=== PATIENT | male | born 1965 | race Caucasian/White ===

== ENCOUNTER 2018-12-24 10:59 | Emergency (ER) | payer OTHER ==
--- NOTE | 2018-12-24 11:42 | ERPHSYRPT ---
- History of Present Illness Time Seen by Provider: 12/24/18 11:22 Source: patient Exam Limitations: no limitations Patient Subjective Stated Complaint: medial low back pain Triage Nursing Assessment: Pt c/o of low medial back pain, has had for a couple of years but thinks he stepped on something wrong yesterday that is aggravating his back, vitals wnl, pulses normal, afebrile, denies numbness or tingling in fingers or toes, no difficulties with strength, rates pain 06/23 Physician History: The patient is a morbidly obese 53-year-old male with his mother. He has chronic low back pain. This morning at 5 AM he stepped out of his bed "wrong" causing a flareup of his low back pain. He has intermittent flareups from time to time. He has had recent MRIs showing spinal stenosis and degenerative disc disease. He states he will get a pain specialist. A neurosurgeon will do surgery for him after he lose more weight. He is been trying to get someone to give him a pain pump. He is allergic to treatments such as Toradol and benzodiazepine. He does not want steroids because it will "mess with his blood sugar". He specifically requests Dilaudid 2 mg followed by Dilaudid 2 mg 30-40 minutes later. I have told him I will give him maximum of 2 mg of Dilaudid. His past medical history is significant for morbid obesity,chronic low back pain , HTN, DM, and high cholesterol 1 Timing/Duration: today Method of Injury: twisted Quality: aching Back Pain Location: lumbar spine Severity of Pain-Max: moderate Severity of Pain-Current: moderate Modifying Factors: Improves With: nothing Associated Symptoms: denies symptoms, No urinary incontinence, No problems urinating, No numbness in legs/feet Previous symptoms: same symptoms as today Allergies/Adverse Reactions: butorphanol [From Stadol] Allergy (Mild, Verified 12/24/18 11:18) Hives ketorolac [From Toradol] Allergy (Mild, Verified 12/24/18 11:18) Hives morphine Allergy (Mild, Verified 12/24/18 11:18) Hives nalbuphine [From Nubain] Allergy (Mild, Verified 12/24/18 11:18) Hives orphenadrine [From Norflex] Allergy (Mild, Verified 12/24/18 11:18) Hives Home Medications: Atorvastatin Calcium [Lipitor 40Mg] 40 mg PO HS 09/15/16 [History] Citalopram Hydrobromide 20 mg* [ceLEXa 20 MG] 20 mg PO DAILY 09/15/16 [ History] Cyclobenzaprine HCl 10 mg [Flexeril 10 MG] 10 mg PO UD 09/15/16 [History] Lisinopril 20 mg [Zestril 20 MG] 20 mg PO DAILY 09/15/16 [History] Metformin HCl 1000 mg [Glucophage 1000 MG] 1,000 mg PO BID 09/15/16 [History] Ranitidine HCl [Zantac] 150 mg PO DAILY 09/15/16 [History] Albuterol Common Canister [Proventil Common Canister] 1 inh PO UD PRN 09/01 [History] Allopurinol 300 mg [Zyloprim 300 mg] 300 mg PO DAILY 12/24/18 [History] Buspirone HCl 5 mg PO DAILY 12/24/18 [History] Omeprazole 20 mg PO DAILY 12/24/18 [History] glipiZIDE [Glipizide] 10 mg PO DAILY 12/24/18 [History] Hx Tetanus, Diphtheria Vaccination/Date Given: Yes Hx Influenza Vaccination/Date Given: No Hx Pneumococcal Vaccination/Date Given: No - Review of Systems Constitutional: No Fever, No Chills Eyes: No Symptoms Ears, Nose, & Throat: No Symptoms Respiratory: No Cough, No Dyspnea Cardiac: No Chest Pain, No Edema, No Syncope Abdominal/Gastrointestinal: No Abdominal Pain, No Nausea, No Vomiting, No Diarrhea Genitourinary Symptoms: No Dysuria Musculoskeletal: Back Pain Skin: No Rash Neurological: No Dizziness, No Focal Weakness, No Sensory Changes Psychological: No Symptoms Endocrine: No Symptoms Hematologic/Lymphatic: No Symptoms Immunological/Allergic: No Symptoms All Other Systems: Reviewed and Negative - Past Medical History Pertinent Past Medical History: Yes Neurological History: No Pertinent History ENT History: No Pertinent History Cardiac History: Hypertension Respiratory History: No Pertinent History Endocrine Medical History: Diabetes Type II Musculoskeletal History: Degenerative Disk Disease GI Medical History: GERD, Irritable Bowel History: No Pertinent History Psycho-Social History: Depression Male Reproductive Disorders: No Pertinent History - Past Surgical History Past Surgical History: Yes Gastrointestinal: Cholecystectomy Musculoskeletal: Orthopedic Surgery Other Surgical History: Knees-orthoscopic. right ankle. left arm - Social History Smoking Status: Never smoker Exposure to second hand smoke: No Drug Use: none Patient Lives Alone: No - Nursing Vital Signs Nursing Vital Signs: Initial Vital Signs Temperature 98.7 F 12/24/18 11:07 Pulse Rate 79 12/24/18 11:07 Blood Pressure 141/77 12/24/18 11:07 O2 Sat by Pulse Oximetry 97 12/24/18 11:07 Pain Scale Pain Intensity [Posterior 8 Medial Back] Pain Intensity 8 - Physical Exam General Appearance: obese Eye Exam: PERRL/EOMI, eyes nml inspection Ears, Nose, Throat Exam: normal ENT inspection Neck Exam: normal inspection, non-tender, supple, full range of motion, No meningismus, No midline tenderness Respiratory Exam: normal breath sounds, lungs clear, No respiratory distress Cardiovascular Exam: regular rate/rhythm, normal heart sounds Gastrointestinal Exam: soft, No tenderness, No mass Rectal Exam: not done Back Exam: point tenderness (lumbar vertebrae) Extremity Exam: normal inspection, normal range of motion, No calf tenderness, No pedal edema Neurologic Exam: alert, oriented x 3, cooperative, game technician II-XII nml as tested, normal mood/affect, nml station & gait, sensation nml, No motor deficits Skin Exam: normal color, warm, dry, No rash SpO2 Interpretation: normal SpO2: 97 O2 Delivery: Room Air - Departure Time of Disposition: 11:51 Departure Disposition: Home Clinical Impression: Chronic low back pain Condition: Stable Critical Care Time: No Referrals: DOCTOR,NO FAMILY [Primary Care Provider] - Additional Instructions: You have a flareup of your chronic low back pain. You were given Dilaudid 2 mg by IM in the ER. Apply ice to the area for 10 to 2:45 times a day as needed. I recommend that you find a pain specialist to manage your chronic back pain.
[2018-12-24] MEDS ORDERED: Hydromorphone 1 mg/ml Ampule IM ONE (11:52)
[2018-12-24] MEDS ORDERED: Hydromorphone 1 mg/ml Ampule ONE (11:59)
[2018-12-24 12:07] VITALS: BP 167/100; PULSE 81; O2SAT 98
[2018-12-24] MEDS ORDERED: ZOFRAN ODT 4 MG PO ONE (12:10)
[2018-12-24] MEDS ORDERED: ZOFRAN ODT 4 MG ONE (12:22)
== END 2018-12-24 12:27 | disposition home or self-care (01) ==
LOC: ED 10:59
DX: M54.5 Low back pain (principal); X50.1XXA Overexertion from prolonged static or awkward postures, initial encounter; G89.29 Other chronic pain; I10 Essential (primary) hypertension; E11.9 Type 2 diabetes mellitus without complications; K21.9 Gastro-esophageal reflux disease without esophagitis; K58.9 Irritable bowel syndrome, unspecified; Z79.4 Long term (current) use of insulin; Z79.899 Other long term (current) drug therapy; E66.01 Morbid (severe) obesity due to excess calories; E78.00 Pure hypercholesterolemia, unspecified
CPT/HCPCS: 96372; 99283; J1170; Q0162

== ENCOUNTER 2022-09-17 09:40 | Emergency (ER) | payer SELFPAY ==
[2022-09-17] MEDS ORDERED: Hydromorphone 1 mg/ml Injection IM ONE (10:15)
[2022-09-17] MEDS ORDERED: ZOFRAN ODT 4 MG PO ONE (10:15)
--- NOTE | 2022-09-17 10:15 | ERPHSYRPT ---
- History of Present Illness Time Seen by Provider: 09/17/22 10:15 Source: patient, family Exam Limitations: no limitations Physician History: This is a morbidly obese 57-year-old white male patient who has a history of chronic back pain issues and does not see a pain specialist who lives in [place] and is traveling through this region. The patient has hyperlipidemia, hypertension and is diabetic. His primary care physician is in [place]. In the last few days, the patient has had increasing localized lumbar spine pain. He does not have any change in his bowel habits. He does not have numbness in his feet. He does not have urinary incontinence. He is only seeking some temporary pain relief so that he can get back to [place] which is where he is going to now. He states he is allergic to morphine and Toradol and Nubain but he is able to take Dilaudid without any problems. He did not fall or have any acute traumatic injury. Patient feels that he does not need any radiographic or laboratory studies. Timing/Duration: day(s) (A few days), worse Quality: sharp Back Pain Location: lumbar spine, paraspinous muscles Severity of Pain-Max: moderate Severity of Pain-Current: moderate Modifying Factors: Improves With: movement Associated Symptoms: lower back pain, No urinary incontinence, No loss of bowel control, No problems urinating, No numbness in legs/feet Previous symptoms: same symptoms as today, recently seen, recently treated Allergies/Adverse Reactions: butorphanol [From Stadol] Allergy (Mild, Verified 12/24/18 11:18) Hives ketorolac [From Toradol] Allergy (Mild, Verified 12/24/18 11:18) Hives morphine Allergy (Mild, Verified 12/24/18 11:18) Hives nalbuphine [From Nubain] Allergy (Mild, Verified 12/24/18 11:18) Hives orphenadrine [From Norflex] Allergy (Mild, Verified 12/24/18 11:18) Hives Home Medications: Atorvastatin Calcium [Lipitor 40Mg] 80 mg PO HS 09/15/16 [History] Citalopram Hydrobromide 20 mg* [ceLEXa 20 MG] 20 mg PO DAILY 09/15/16 [History] Cyclobenzaprine HCl 10 mg [Flexeril 10 MG] 10 mg PO UD 09/15/16 [History] Lisinopril 20 mg [Zestril 20 MG] 20 mg PO DAILY 09/15/16 [History] Metformin HCl 1000 mg [Glucophage 1000 MG] 1,000 mg PO BID 09/15/16 [History] raNITIdine HCL [Zantac] 150 mg PO DAILY 09/15/16 [History] Albuterol Common Canister [Ventolin Common Canister] 1 inh PO UD PRN 12/24/18 [History] Allopurinol 300 mg [Zyloprim 300 mg] 300 mg PO DAILY 12/24/18 [History] Buspirone HCl 5 mg PO DAILY 12/24/18 [History] Omeprazole 20 mg PO DAILY 12/24/18 [History] glipiZIDE [Glipizide] 10 mg PO DAILY 12/24/18 [History] Hx Tetanus, Diphtheria Vaccination/Date Given: Yes Hx Influenza Vaccination/Date Given: No Hx Pneumococcal Vaccination/Date Given: No Travel Risk - International Travel Have you traveled outside of the country in past 3 weeks: No - Coronavirus Screening Are you exhibiting any of the following symptoms?: No Close contact with a COVID-19 positive Pt in past 14-21 Days: No - Review of Systems Constitutional: No Symptoms Eyes: No Symptoms Ears, Nose, & Throat: No Symptoms Respiratory: No Symptoms Cardiac: No Symptoms Abdominal/Gastrointestinal: No Symptoms Genitourinary Symptoms: No Symptoms Musculoskeletal: No Symptoms, Back Pain Skin: No Symptoms Neurological: No Symptoms Psychological: No Symptoms Endocrine: No Symptoms Hematologic/Lymphatic: No Symptoms Immunological/Allergic: No Symptoms All Other Systems: Reviewed and Negative - Past Medical History Pertinent Past Medical History: Yes Neurological History: No Pertinent History ENT History: No Pertinent History Cardiac History: Hypertension Respiratory History: No Pertinent History Endocrine Medical History: Diabetes Type II Musculoskeletal History: Degenerative Disk Disease GI Medical History: GERD, Irritable Bowel History: No Pertinent History Psycho-Social History: Depression Male Reproductive Disorders: No Pertinent History - Past Surgical History Past Surgical History: Yes Gastrointestinal: Cholecystectomy Musculoskeletal: Orthopedic Surgery Other Surgical History: Knees-orthoscopic. right ankle. left arm - Social History Smoking Status: Never smoker Exposure to second hand smoke: No Drug Use: none Patient Lives Alone: No - Physical Exam General Appearance: no apparent distress, alert, anxiety, obese Eye Exam: PERRL/EOMI, eyes nml inspection Ears, Nose, Throat Exam: normal ENT inspection, moist mucous membranes Neck Exam: normal inspection, non-tender, supple, full range of motion Respiratory Exam: normal breath sounds, lungs clear, airway intact, No chest tenderness, No respiratory distress Cardiovascular Exam: regular rate/rhythm, normal heart sounds, normal peripheral pulses Gastrointestinal Exam: soft, normal bowel sounds, No tenderness Rectal Exam: not done Back Exam: normal inspection, vertebral tenderness (Lumbar level), muscle spasm, No CVA tenderness Extremity Exam: normal inspection, normal range of motion, pelvis stable Neurologic Exam: alert, oriented x 3, cooperative, ticker maintainer II-XII nml as tested, normal mood/affect, nml cerebellar function, nml station & gait, sensation nml Skin Exam: normal color, warm, dry Lymphatic Exam: No adenopathy SpO2 Interpretation: normal O2 Delivery: Room Air - Course Nursing assessment & vital signs reviewed: Yes Ordered Tests: Medication Summary Discontinued Medications Generic Name Dose Route Start Last Admin Trade Name Walter PRN Reason Stop Dose Admin Hydromorphone HCl 2 mg 09/17/22 10:15 Hydromorphone 1 Mg/1ml Inj 1 Mg/Ml Syringe IM 09/17/22 10:16 STAT ONE Ondansetron HCl 4 mg 09/17/22 10:15 Zofran 4 Mg/Udtablet Orally Disintegrating PO 09/17/22 10:16 STAT ONE - Progress Progress: improved, pain not gone completely Counseled pt/family regarding: diagnosis, need for follow-up - Departure Departure Disposition: Home Clinical Impression: Acute exacerbation of chronic low back pain Condition: Stable Critical Care Time: No Referrals: DOCTOR,NO FAMILY [Primary Care Provider] - Follow up/PCP as directed Additional Instructions: Follow-up with your primary care physician today to make an appointment for further evaluation management including referral to a pain specialist.
[2022-09-17] MEDS ORDERED: ZOFRAN ODT 4 MG ONE (10:26)
[2022-09-17] MEDS ORDERED: Hydromorphone 1 mg/ml Injection ONE (10:26)
[2022-09-17 10:30] VITALS: BP 168/102
[2022-09-17 10:36] VITALS: PULSE 108; O2SAT 97
== END 2022-09-17 10:44 | disposition home or self-care (01) ==
LOC: ED 09:40
DX: G89.29 Other chronic pain (principal); M54.50 Low back pain, unspecified; E78.5 Hyperlipidemia, unspecified; I10 Essential (primary) hypertension; E11.9 Type 2 diabetes mellitus without complications; Z79.84 Long term (current) use of oral hypoglycemic drugs; Z79.899 Other long term (current) drug therapy
CPT/HCPCS: 96372; 99283; J1170; Q0162

== ENCOUNTER 2023-03-24 11:11 | Emergency (ER) | payer SELFPAY ==
[2023-03-24] MEDS ORDERED: Hydromorphone 1 mg/ml Injection IM ONE (11:50)
[2023-03-24] MEDS ORDERED: ZOFRAN ODT 4 MG PO ONE (11:51)
[2023-03-24] MEDS ORDERED: ZOFRAN ODT 4 MG ONE (12:06)
[2023-03-24] MEDS ORDERED: Hydromorphone 1 mg/ml Injection ONE (12:07)
[2023-03-24 12:14] VITALS: BP 173/92; PULSE 93; O2SAT 94
--- NOTE | 2023-03-24 12:39 | ERPHSYRPT ---
- History of Present Illness Time Seen by Provider: 03/24/23 11:20 Source: patient Exam Limitations: no limitations Patient Subjective Stated Complaint: PT states "I have had pain in my lower back since this morning. It hurts on my spine." Triage Nursing Assessment: Pt presented alert and oriented X 3, ski pwd. Pt ambulates with a wide steady gait. Pt lower excelsior machine tender to touch. Physician History: 58-year-old morbidly obese male with history of chronic back pain, arthritis presented in the ER with worsening low back pain for quite some time and lately having difficulty ambulation. Patient thinks is probably secondary to him being favoring on one knee than the other that is causing more stress on lower back. No numbness or weakness of lower extremities. No loss of bowel or bladder control. Patient is supposed to go to pain management for ablation and epidural injections after he has his knee surgery done. No fall or new trauma reported. Pain is similar to previous. Timing/Duration: week(s), intermittent, worse Method of Injury: unknown Quality: sharp Back Pain Radiation: buttocks Severity of Pain-Max: severe Severity of Pain-Current: severe Modifying Factors: Improves With: immobilization, pain medication, rest. Worsens With: movement Associated Symptoms: lower back pain, No sensory/motor loss Previous symptoms: same symptoms as today Allergies/Adverse Reactions: butorphanol [From Stadol] Allergy (Mild, Verified 09/17/22 10:25) Hives ketorolac [From Toradol] Allergy (Mild, Verified 09/17/22 10:25) Hives morphine Allergy (Mild, Verified 09/17/22 10:25) Hives nalbuphine [From Nubain] Allergy (Mild, Verified 09/17/22 10:25) Hives orphenadrine [From Norflex] Allergy (Mild, Verified 09/17/22 10:25) Hives diazepam [From Valium] Allergy (Verified 09/17/22 10:27) fentanyl Allergy (Verified 09/17/22 10:27) Home Medications: Atorvastatin Calcium [Lipitor 40Mg] 80 mg PO HS 09/15/16 [History] Citalopram Hydrobromide 20 mg* [ceLEXa 20 MG] 20 mg PO DAILY 09/15/16 [History] Cyclobenzaprine HCl 10 mg [Flexeril 10 MG] 10 mg PO UD 09/15/16 [History] Lisinopril 20 mg [Zestril 20 MG] 20 mg PO DAILY 09/15/16 [History] Metformin HCl 1000 mg [Glucophage 1000 MG] 1,000 mg PO BID 09/15/16 [History] raNITIdine HCL [Zantac] 150 mg PO DAILY 09/15/16 [History] Allopurinol 300 mg [Zyloprim 300 mg] 300 mg PO DAILY 12/24/18 [History] Buspirone HCl 5 mg PO DAILY 12/24/18 [History] Dicyclomine HCl 10 mg PO QID 09/17/22 [History] Empagliflozin [Jardiance] 10 mg PO DAILY 09/17/22 [History] Meloxicam 15 mg [Meloxicam 15 MG] 15 mg PO DAILY 09/17/22 [History] PANTOPRAZOLE 40 mg Tablet [Protonix 40MG Tablet] 40 mg PO QAM 09/17/22 [History] Hx Tetanus, Diphtheria Vaccination/Date Given: Yes Hx Influenza Vaccination/Date Given: No Hx Pneumococcal Vaccination/Date Given: No Immunizations Up to Date: Yes Travel Risk - International Travel Have you traveled outside of the country in past 3 weeks: No - Coronavirus Screening Are you exhibiting any of the following symptoms?: No Close contact with a COVID-19 positive Pt in past 14-21 Days: No - Vaccine Status Have you recieved a Covid-19 vaccination: Yes [employer]: [employer] - Vaccination Dates Date of 2cond Vaccination (if applicable): 2020 - Review of Systems Constitutional: No Symptoms Ears, Nose, & Throat: No Symptoms Respiratory: No Symptoms Cardiac: No Symptoms Abdominal/Gastrointestinal: No Symptoms Genitourinary Symptoms: No Symptoms Musculoskeletal: Arthralgias, Back Pain Skin: No Symptoms Neurological: No Symptoms Immunological/Allergic: No Symptoms - Past Medical History Pertinent Past Medical History: Yes Neurological History: No Pertinent History ENT History: No Pertinent History Cardiac History: Hypertension Respiratory History: No Pertinent History Endocrine Medical History: Diabetes Type II Musculoskeletal History: Degenerative Disk Disease GI Medical History: GERD, Irritable Bowel History: No Pertinent History Psycho-Social History: Depression Male Reproductive Disorders: No Pertinent History - Past Surgical History Past Surgical History: Yes Gastrointestinal: Cholecystectomy Musculoskeletal: Orthopedic Surgery Other Surgical History: Knees-orthoscopic. right ankle. left arm - Social History Smoking Status: Never smoker Exposure to second hand smoke: No Drug Use: none Patient Lives Alone: No - Nursing Vital Signs Nursing Vital Signs: Initial Vital Signs Temperature 97.2 F 03/24/23 11:23 Pulse Rate 94 H 03/24/23 11:23 Respiratory Rate 20 03/24/23 11:23 Blood Pressure 180/93 03/24/23 11:23 O2 Sat by Pulse Oximetry 98 03/24/23 11:23 Pain Scale Pain Intensity [Lower Back] 8 Pain Intensity 8 - Physical Exam General Appearance: no apparent distress, alert Eye Exam: PERRL/EOMI Ears, Nose, Throat Exam: normal ENT inspection Neck Exam: normal inspection, full range of motion Respiratory Exam: normal breath sounds, lungs clear Cardiovascular Exam: regular rate/rhythm, normal heart sounds Gastrointestinal Exam: soft, normal bowel sounds, No tenderness Back Exam: normal inspection, decreased range of motion, muscle spasm, point tenderness (Bilateral sacroiliac area), No CVA tenderness, No vertebral tenderness Extremity Exam: normal inspection, normal range of motion Neurologic Exam: alert, oriented x 3, cooperative Skin Exam: normal color SpO2 Interpretation: normal SpO2: 94 O2 Delivery: Room Air Ordered Tests: Medication Summary Discontinued Medications Generic Name Dose Route Start Last Admin Trade Name [employer] PRN Reason Stop Dose Admin Hydromorphone HCl 2 mg 03/24/23 11:50 03/24/23 12:08 Hydromorphone 1 Mg/1ml Inj IM 03/24/23 11:51 2 mg STAT ONE Administration Hydromorphone HCl Confirm 03/24/23 12:07 Hydromorphone 1 Mg/1ml Inj Administered 03/24/23 12:08 Dose 2 mg .ROUTE .STK-MED ONE Ondansetron HCl 4 mg 03/24/23 11:51 03/24/23 12:09 Zofran 4 Mg/Udtablet Orally Disintegrating PO 03/24/23 11:52 4 mg STAT ONE Administration Ondansetron HCl Confirm 03/24/23 12:06 Zofran 4 Mg/Udtablet Orally Disintegrating Administered 03/24/23 12:07 Dose 4 mg .ROUTE .STK-MED ONE - Progress Progress: improved Progress Note: 03/24/23 12:37 Morbidly obese male is evaluated for lower back pain. Patient has history of chronic back pain and lately getting worse because of him favoring one knee than the other for which she is scheduled to have some surgical procedure done soon. Patient is also going to see pain management for nerve ablation and epidural injections. Has no cauda equina symptoms. Pain is similar to previous, given symptomatic treatment, on reevaluation is feeling much better and wants to go home. Recommended continue with meds which she has at home and outpatient follow-up. Discussed signs symptoms of worsening needing return to ER which patient seems understanding. Stable for discharge. Counseled pt/family regarding: diagnosis, need for follow-up Medical Desision Making - Discussion of managment Agreed on:: need for follow-up - Diagnostic Testing Diagnostic test were ordered, analyzed, and reviewed by me: No - Risk of complications The pt has a mod risk of morbidity or mortality based on: Need for prescription drug management - Departure Departure Disposition: Home Clinical Impression: Acute exacerbation of chronic low back pain Condition: Stable Critical Care Time: No Referrals: DOCTOR,NO FAMILY [Primary Care Provider] - Follow up/PCP as directed Instructions: Low Back Pain (DC) Additional Instructions: Continue with current medications which you have at home. Follow-up with your primary care and pain management for further evaluation. Return to ER for intractable low back pain, numbness tingling weakness of lower extremities, loss of bowel or bladder control etc.
== END 2023-03-24 12:50 | disposition home or self-care (01) ==
LOC: ED 11:11
DX: M54.50 Low back pain, unspecified (principal); Z79.899 Other long term (current) drug therapy; Z20.828 Contact with and (suspected) exposure to other viral communicable diseases
CPT/HCPCS: 96372; 99283; J1170; Q0162

== ENCOUNTER 2023-04-12 21:30 | Emergency (ER) | payer SELFPAY ==
--- NOTE | 2023-04-12 21:39 | ERPHSYRPT ---
- History of Present Illness Time Seen by Provider: 04/12/23 21:39 Source: patient, family Exam Limitations: no limitations (Other) Physician History: This a 58-year-old morbidly obese white male who has chronic back pain. Today the pain became worse. The family (patient and mother) live in [place] and they were here checking on animals. Patient has given similar story on 2 other occasions and was last seen here on 03/14/2023. Patient has several medical allergies but he can take Dilaudid without any problems. Patient did not suffer any acute traumatic injury. His movement has exacerbated back pain. Patient has not had any urinary continence. He has had no problems with bowel incontinence or constipation. He has no numbness in his feet. He has low back pain. Timing/Duration: today Method of Injury: other (No injury) Quality: aching, stabbing Back Pain Location: paraspinous muscles Severity of Pain-Max: moderate Severity of Pain-Current: moderate Modifying Factors: Improves With: movement Associated Symptoms: lower back pain, muscle spasms, No urinary incontinence, No loss of bowel control, No constipation, No problems urinating, No numbness in legs/feet Previous symptoms: same symptoms as today, recently seen, recently treated Allergies/Adverse Reactions: butorphanol [From Stadol] Allergy (Mild, Verified 04/12/23 21:55) Hives ketorolac [From Toradol] Allergy (Mild, Verified 04/12/23 21:55) Hives morphine Allergy (Mild, Verified 04/12/23 21:55) Hives nalbuphine [From Nubain] Allergy (Mild, Verified 04/12/23 21:55) Hives orphenadrine [From Norflex] Allergy (Mild, Verified 04/12/23 21:55) Hives diazepam [From Valium] Allergy (Verified 04/12/23 21:55) fentanyl Allergy (Verified 04/12/23 21:55) Home Medications: Atorvastatin Calcium [Lipitor 40Mg] 80 mg PO HS 09/15/16 [History] Citalopram Hydrobromide 20 mg* [ceLEXa 20 MG] 20 mg PO DAILY 09/15/16 [History] Cyclobenzaprine HCl 10 mg [Flexeril 10 MG] 10 mg PO UD 09/15/16 [History] Lisinopril 20 mg [Zestril 20 MG] 20 mg PO DAILY 09/15/16 [History] Metformin HCl 1000 mg [Glucophage 1000 MG] 1,000 mg PO BID 09/15/16 [History] raNITIdine HCL [Zantac] 150 mg PO DAILY 09/15/16 [History] Allopurinol 300 mg [Zyloprim 300 mg] 300 mg PO DAILY 12/24/18 [History] Buspirone HCl 5 mg PO DAILY 12/24/18 [History] Dicyclomine HCl 10 mg PO QID 09/17/22 [History] Empagliflozin [Jardiance] 10 mg PO DAILY 09/17/22 [History] Meloxicam 15 mg [Meloxicam 15 MG] 15 mg PO DAILY 09/17/22 [History] PANTOPRAZOLE 40 mg Tablet [Protonix 40MG Tablet] 40 mg PO QAM 09/17/22 [History] Hx Tetanus, Diphtheria Vaccination/Date Given: Yes Hx Influenza Vaccination/Date Given: No Hx Pneumococcal Vaccination/Date Given: No Travel Risk - International Travel Have you traveled outside of the country in past 3 weeks: No - Coronavirus Screening Are you exhibiting any of the following symptoms?: No Close contact with a COVID-19 positive Pt in past 14-21 Days: No - Vaccine Status Have you recieved a Covid-19 vaccination: Yes 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[employer] - Vaccination Dates Date of 2cond Vaccination (if applicable): 2020 - Review of Systems Constitutional: No Symptoms Eyes: No Symptoms Ears, Nose, & Throat: No Symptoms Respiratory: No Symptoms Cardiac: No Symptoms Abdominal/Gastrointestinal: No Symptoms Genitourinary Symptoms: No Symptoms Musculoskeletal: Back Pain, No Fall, No Injury Skin: No Symptoms Neurological: No Symptoms Psychological: No Symptoms Endocrine: No Symptoms Hematologic/Lymphatic: No Symptoms Immunological/Allergic: No Symptoms All Other Systems: Reviewed and Negative - Past Medical History Pertinent Past Medical History: Yes Neurological History: No Pertinent History ENT History: No Pertinent History Cardiac History: Hypertension Respiratory History: No Pertinent History Endocrine Medical History: Diabetes Type II Musculoskeletal History: Degenerative Disk Disease GI Medical History: GERD, Irritable Bowel History: No Pertinent History Psycho-Social History: Depression Male Reproductive Disorders: No Pertinent History - Past Surgical History Past Surgical History: Yes Gastrointestinal: Cholecystectomy Musculoskeletal: Orthopedic Surgery Other Surgical History: Knees-orthoscopic. right ankle. left arm - Social History Smoking Status: Never smoker Exposure to second hand smoke: No Drug Use: none Patient Lives Alone: No - Nursing Vital Signs Nursing Vital Signs: Initial Vital Signs Temperature 97.6 F 04/12/23 21:43 Pulse Rate 82 04/12/23 21:43 Respiratory Rate 17 04/12/23 21:43 Blood Pressure 159/94 04/12/23 21:43 O2 Sat by Pulse Oximetry 95 04/12/23 21:43 Pain Scale Pain Intensity 8 - Physical Exam General Appearance: no apparent distress, alert, anxiety, obese Eye Exam: PERRL/EOMI, eyes nml inspection Ears, Nose, Throat Exam: normal ENT inspection, moist mucous membranes Neck Exam: normal inspection, non-tender, supple, full range of motion Respiratory Exam: normal breath sounds, lungs clear, No chest tenderness, No respiratory distress, No airway intact Gastrointestinal Exam: No tenderness Rectal Exam: not done Back Exam: normal inspection, normal range of motion, No CVA tenderness, No vertebral tenderness Extremity Exam: normal inspection, normal range of motion, pelvis stable Neurologic Exam: alert, oriented x 3, cooperative, starcher and tenter range feeder II-XII nml as tested, normal mood/affect, nml cerebellar function, nml station & gait, sensation nml Skin Exam: normal color, warm, dry Lymphatic Exam: No adenopathy SpO2 Interpretation: normal O2 Delivery: Room Air - Course Nursing assessment & vital signs reviewed: Yes - Progress Progress: improved, pain not gone completely, re-examined Progress Note: 04/12/23 22:59 Patient's medical issues 1 of low complexity. Level of complexity and the work- up performed is based on the review of the patient's past medical history, review of the patient's medication list, review the patient's drug allergy list, history of present illness and physical findings on examination. Patient does not need any laboratory studies or radiographic studies obtained. Patient has acute exacerbation of chronic low back pain without any acute traumatic injury. Counseled pt/family regarding: diagnosis, need for follow-up Medical Desision Making - Independent Historian Additional History obtained from: Mother - Diagnostic Testing Diagnostic test were ordered, analyzed, and reviewed by me: No - Risk of complications Low Risk: Low risk of morbidity from additional dx testing or treatment - Departure Departure Disposition: Home Clinical Impression: Acute exacerbation of chronic low back pain Condition: Stable Critical Care Time: No Referrals: DOCTOR,NO FAMILY [NON-STAFF PHY W/O PRIVILEGES] - Follow up/PCP as directed Additional Instructions: Take all your medications as prescribed. Follow-up with your prescribing physician, back specialist and pain specialist for further evaluation and management of your chronic pain issues.
[2023-04-12] MEDS ORDERED: ZOFRAN ODT 4 MG PO ONE (22:54)
[2023-04-12] MEDS ORDERED: Hydromorphone 1 mg/ml Injection IM ONE (22:54)
[2023-04-12] MEDS ORDERED: ZOFRAN ODT 4 MG ONE (22:59)
[2023-04-12] MEDS ORDERED: Hydromorphone 1 mg/ml Injection ONE (23:00)
[2023-04-12 23:07] VITALS: BP 163/105; O2SAT 96
[2023-04-13 00:11] VITALS: PULSE 86
== END 2023-04-13 00:11 | disposition home or self-care (01) ==
LOC: ED 21:30
DX: G89.29 Other chronic pain (principal); M54.50 Low back pain, unspecified; I10 Essential (primary) hypertension; E11.9 Type 2 diabetes mellitus without complications; Z79.84 Long term (current) use of oral hypoglycemic drugs; Z79.899 Other long term (current) drug therapy
CPT/HCPCS: 96372; 99283; J1170; Q0162

== ENCOUNTER 2023-06-30 22:04 | Emergency (ER) | payer SELFPAY ==
[2023-06-30 22:50] VITALS: TEMP 97.4
[2023-06-30] MEDS ORDERED: Hydromorphone 1 mg/ml Injection IM ONE (22:55)
[2023-06-30] MEDS ORDERED: ZOFRAN ODT 4 MG PO ONE (22:55)
[2023-06-30] MEDS ORDERED: ZOFRAN ODT 4 MG ONE (22:57)
[2023-06-30] MEDS ORDERED: Hydromorphone 1 mg/ml Injection ONE (22:58)
--- NOTE | 2023-06-30 23:03 | ERPHSYRPT ---
- History of Present Illness Time Seen by Provider: 06/30/23 22:16 Source: patient Exam Limitations: no limitations Patient Subjective Stated Complaint: pt states I have constant back Triage Nursing Assessment: pt ambulated into the er; pt transfer self to cot; c/o back pain; hx of back pain; no deformity or bruising present to back; limited ROM to lower back; skin PDW; vitals wnl Physician History: 58-year-old morbidly obese male with history of chronic back pain, poorly controlled diabetes mellitus, hypertension presented in the ER with chief complaint of worsening low back pain since this afternoon. Patient reports moderate to severe sharp pain nonradiating in the lower back more on the left side, aggravated with activity and no significant relieving factors. Patient denies any numbness tingling or weakness of lower extremities. No loss of bowel or bladder control. No perineal numbness. Reports having similar pain in the past. Denies any fall or trauma. Timing/Duration: today, constant, sudden, worse Method of Injury: unknown Quality: sharp Back Pain Location: lumbar spine, paraspinous muscles Severity of Pain-Max: severe Modifying Factors: Worsens With: movement Associated Symptoms: lower back pain, muscle spasms, No urinary incontinence, No loss of bowel control, No constipation, No nausea, No vomiting, No problems urinating, No light-headedness, No dizziness, No numbness in legs/feet, No sensory/motor loss, No tingling in legs/feet Allergies/Adverse Reactions: butorphanol [From Stadol] Allergy (Mild, Verified 06/30/23 22:37) Hives ketorolac [From Toradol] Allergy (Mild, Verified 06/30/23 22:37) Hives morphine Allergy (Mild, Verified 06/30/23 22:37) Hives nalbuphine [From Nubain] Allergy (Mild, Verified 06/30/23 22:37) Hives orphenadrine [From Norflex] Allergy (Mild, Verified 06/30/23 22:37) Hives diazepam [From Valium] Allergy (Verified 06/30/23 22:37) fentanyl Allergy (Verified 06/30/23 22:37) Home Medications: Atorvastatin Calcium [Lipitor 40Mg] 80 mg PO HS 09/15/16 [History] Citalopram Hydrobromide 20 mg* [ceLEXa 20 MG] 20 mg PO DAILY 09/15/16 [History] Lisinopril 20 mg [Zestril 20 MG] 20 mg PO DAILY 09/15/16 [History] Metformin HCl 1000 mg [Glucophage 1000 MG] 1,000 mg PO BID 09/15/16 [History] Allopurinol 300 mg [Zyloprim 300 mg] 300 mg PO DAILY 12/24/18 [History] Buspirone HCl 5 mg PO DAILY 12/24/18 [History] Dicyclomine HCl 10 mg PO QID 09/17/22 [History] Empagliflozin [Jardiance] 10 mg PO DAILY 09/17/22 [History] PANTOPRAZOLE 40 mg Tablet [Protonix 40MG Tablet] 40 mg PO QAM 09/17/22 [History] Glipizide 10 mg [Glucotrol 10 MG] 10 mg PO DAILY 06/30/23 [History] Hydrocodone/Acetaminophen [Hydrocodone-Acetamin 10-325 mg] 1 tab PO Q6HPRN PRN 06/30/23 [History] Hx Tetanus, Diphtheria Vaccination/Date Given: Yes Hx Influenza Vaccination/Date Given: No Hx Pneumococcal Vaccination/Date Given: No Travel Risk - International Travel Have you traveled outside of the country in past 3 weeks: No - Coronavirus Screening Are you exhibiting any of the following symptoms?: No Close contact with a COVID-19 positive Pt in past 14-21 Days: No - Vaccine Status Have you recieved a Covid-19 vaccination: Yes 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[employer] - Vaccination Dates Date of 2cond Vaccination (if applicable): 2020 - Review of Systems Constitutional: No Symptoms Ears, Nose, & Throat: No Symptoms Respiratory: No Symptoms Cardiac: No Symptoms Abdominal/Gastrointestinal: No Symptoms Genitourinary Symptoms: No Symptoms Musculoskeletal: Arthralgias, Back Pain Skin: No Symptoms Neurological: No Symptoms Endocrine: No Symptoms Hematologic/Lymphatic: No Symptoms - Past Medical History Pertinent Past Medical History: Yes Neurological History: No Pertinent History ENT History: No Pertinent History Cardiac History: Hypertension Respiratory History: No Pertinent History Endocrine Medical History: Diabetes Type II Musculoskeletal History: Degenerative Disk Disease GI Medical History: GERD, Irritable Bowel History: No Pertinent History Psycho-Social History: Depression Male Reproductive Disorders: No Pertinent History - Past Surgical History Past Surgical History: Yes Neuro Surgical History: No Pertinent History Cardiac: No Pertinent History Respiratory: No Pertinent History Gastrointestinal: Cholecystectomy Genitourinary: No Pertinent History Musculoskeletal: Orthopedic Surgery Male Surgical History: No Pertinent History Other Surgical History: Knees-orthoscopic. right ankle. left arm - Social History Smoking Status: Never smoker Exposure to second hand smoke: No Drug Use: none Patient Lives Alone: No - Nursing Vital Signs Nursing Vital Signs: Initial Vital Signs Temperature 97.4 F 06/30/23 22:40 Pulse Rate 72 06/30/23 22:40 Respiratory Rate 22 06/30/23 22:40 Blood Pressure 192/98 06/30/23 22:40 O2 Sat by Pulse Oximetry 97 06/30/23 22:40 Pain Scale Pain Intensity [Lower Back] 8 Pain Intensity 8 - Physical Exam General Appearance: no apparent distress, alert Ears, Nose, Throat Exam: normal ENT inspection Neck Exam: normal inspection, supple, full range of motion Respiratory Exam: normal breath sounds, lungs clear Cardiovascular Exam: regular rate/rhythm, normal heart sounds Gastrointestinal Exam: soft, normal bowel sounds, No tenderness Back Exam: normal inspection, decreased range of motion, muscle spasm, point tenderness (Left sacroiliac area. Lumbar paraspinal area.) Extremity Exam: normal inspection, normal range of motion Neurologic Exam: alert, oriented x 3, cooperative, ocean lifeguard II-XII nml as tested, nml station & gait, sensation nml Skin Exam: normal color SpO2 Interpretation: normal SpO2: 97 O2 Delivery: Room Air - Progress Progress: improved, pain not gone completely Progress Note: 06/30/23 2360 58-year-old morbidly obese male with history of chronic back pain, poorly controlled diabetes mellitus, hypertension presented in the ER with chief complaint of worsening low back pain since this afternoon. Patient reports moderate to severe sharp pain nonradiating in the lower back more on the left side, aggravated with activity and no significant relieving factors. Patient denies any numbness tingling or weakness of lower extremities. No loss of bowel or bladder control. No perineal numbness. Reports having similar pain in the past. Denies any fall or trauma. patient has negative neuro exam in lower extremities. Pain is similar to pre vious. He is given symptomatic treatment for pain, on reevaluation pain is improved and able to ambulate better. Pain is similar to previous. No loss of bowel or bladder control. He is advised to follow-up with his primary care and pain management for reevaluation. Discussed signs symptoms of worsening needing return to ER which she seems understanding. Counseled pt/family regarding: diagnosis, need for follow-up - Departure Departure Disposition: Home Clinical Impression: Acute exacerbation of chronic low back pain Condition: Stable Critical Care Time: No Referrals: MEGGAN MARIE MD [Primary Care Provider] - Follow up with PCP 1 day Instructions: Low Back Pain (DC) Additional Instructions: Take Tylenol/muscle relaxants as needed. Keep appointment with pain management. Follow-up with primary care for reevaluation. Return to ER for any worsening of pain, numbness tingling weakness of lower extremities/loss of bowel or bladder control/perineal numbness.
[2023-06-30 23:14] VITALS: RESP 16
[2023-06-30 23:32] VITALS: BP 144/96; PULSE 77; O2SAT 95
== END 2023-06-30 23:30 | disposition home or self-care (01) ==
LOC: ED 22:04
DX: G89.29 Other chronic pain (principal); M54.50 Low back pain, unspecified; E11.9 Type 2 diabetes mellitus without complications; I10 Essential (primary) hypertension; Z79.84 Long term (current) use of oral hypoglycemic drugs; Z79.891 Long term (current) use of opiate analgesic; Z79.899 Other long term (current) drug therapy
CPT/HCPCS: 96372; 99283; J1170; Q0162

== ENCOUNTER 2024-05-04 02:51 | Emergency (ER) | payer SELFPAY ==
[2024-05-04 03:07] VITALS: RESP 24; TEMP 97.7
--- NOTE | 2024-05-04 03:18 | ERPHSYRPT ---
- History of Present Illness Time Seen by Provider: 05/04/24 02:54 Source: patient Exam Limitations: no limitations Patient Subjective Stated Complaint: pt states he felt a squish in his back Triage Nursing Assessment: pt came into the er via ambulance; pt transfer to cot per self; pt states 8/10 pain to back; no deformity to back; good ROM to back; skin PDW; no respiratory distress present; vitals wnl Physician History: 59 years old morbidly obese male with a history of chronic back pain, diabetes mellitus presented in the ER via EMS after he twisted around while in the bed and got acute worsening of pain right lower back with radiation to right lower extremity. Patient reports moderate to severe sharp pain. No weakness of lower extremity, no saddle anesthesia. No loss of bowel or bladder control. Reports having similar symptoms multiple times in the past. Allergies/Adverse Reactions: butorphanol [From Stadol] Allergy (Mild, Verified 05/04/24 02:53) Hives ketorolac [From Toradol] Allergy (Mild, Verified 05/04/24 02:53) Hives morphine Allergy (Mild, Verified 05/04/24 02:53) Hives nalbuphine [From Nubain] Allergy (Mild, Verified 05/04/24 02:53) Hives orphenadrine [From Norflex] Allergy (Mild, Verified 05/04/24 02:53) Hives diazepam [From Valium] Allergy (Verified 05/04/24 02:53) fentanyl Allergy (Verified 05/04/24 02:53) Home Medications: Atorvastatin Calcium [Lipitor 40Mg] 80 mg PO HS 09/15/16 [History] Citalopram Hydrobromide 20 mg* [ceLEXa 20 MG] 20 mg PO DAILY 09/15/16 [History] Lisinopril 20 mg [Zestril 20 MG] 20 mg PO DAILY 09/15/16 [History] Metformin HCl 1000 mg [Glucophage 1000 MG] 1,000 mg PO BID 09/15/16 [History] Allopurinol 300 mg [Zyloprim 300 mg] 300 mg PO DAILY 12/24/18 [History] Buspirone HCl 5 mg PO DAILY 12/24/18 [History] Dicyclomine HCl 10 mg PO QID 09/17/22 [History] Empagliflozin [Jardiance] 10 mg PO DAILY 09/17/22 [History] PANTOPRAZOLE 40 mg Tablet [Protonix 40MG Tablet] 40 mg PO QAM 09/17/22 [History] Glipizide 10 mg [Glucotrol 10 MG] 10 mg PO DAILY 06/30/23 [History] methocarbamoL [Methocarbamol] 750 mg PO BID 05/04/24 [History] Hx Tetanus, Diphtheria Vaccination/Date Given: Yes Hx Influenza Vaccination/Date Given: Yes Hx Pneumococcal Vaccination/Date Given: No Immunizations Up to Date: No Travel Risk - International Travel Have you traveled outside of the country in past 3 weeks: No - Emerging Infectious Disease Are you exhibiting symptoms associated with any current EIDs: No - Review of Systems Constitutional: No Symptoms Ears, Nose, & Throat: No Symptoms Respiratory: No Symptoms Cardiac: No Symptoms Abdominal/Gastrointestinal: No Symptoms Genitourinary Symptoms: No Symptoms Musculoskeletal: Back Pain Skin: No Symptoms Neurological: No Symptoms Endocrine: No Symptoms Hematologic/Lymphatic: No Symptoms - Past Medical History Pertinent Past Medical History: Yes Neurological History: No Pertinent History ENT History: No Pertinent History Cardiac History: Hypertension Respiratory History: No Pertinent History Endocrine Medical History: Diabetes Type II Musculoskeletal History: Degenerative Disk Disease GI Medical History: GERD, Irritable Bowel History: No Pertinent History Psycho-Social History: Depression Male Reproductive Disorders: No Pertinent History - Past Surgical History Past Surgical History: Yes Neuro Surgical History: No Pertinent History Cardiac: No Pertinent History Respiratory: No Pertinent History Gastrointestinal: Cholecystectomy Genitourinary: No Pertinent History Musculoskeletal: Orthopedic Surgery Male Surgical History: No Pertinent History Other Surgical History: Knees-orthoscopic. right ankle. left arm - Social History Smoking Status: Never smoker Exposure to second hand smoke: No Drug Use: none Patient Lives Alone: No - Social Determinants of Health Will the patient participate in the screening: Yes Do you worry about a steady place to live?: No Do you have any problems with any of the following?: No known problems In the past 12 months,have you had to go without utilities?: No Transportation Issues: No Has anyone in your support network made you feel unsafe?: No Have you or anyone in your house had to go without enough: No - Nursing Vital Signs Nursing Vital Signs: Initial Vital Signs Temperature 97.7 F 06/21/24 02:56 Pulse Rate 65 05/04/24 02:56 Respiratory Rate 24 05/04/24 02:56 Blood Pressure 137/56 05/04/24 02:56 O2 Sat by Pulse Oximetry 98 05/04/24 02:56 Pain Scale Pain Intensity [Back] 8 Pain Intensity 8 - Physical Exam General Appearance: no apparent distress Eye Exam: PERRL/EOMI Ears, Nose, Throat Exam: normal ENT inspection Neck Exam: normal inspection, full range of motion Respiratory Exam: normal breath sounds, lungs clear Cardiovascular Exam: regular rate/rhythm, normal heart sounds Gastrointestinal Exam: soft, normal bowel sounds, No tenderness Back Exam: normal inspection, decreased range of motion, muscle spasm, point tenderness (Right sacroiliac area.) Extremity Exam: normal inspection, normal range of motion, pelvis stable Neurologic Exam: alert, oriented x 3, cooperative Skin Exam: normal color SpO2 Interpretation: normal SpO2: 98 O2 Delivery: Room Air Ordered Tests: Medication Summary Discontinued Medications Generic Name Dose Route Start Last Admin Trade Name Freq PRN Reason Stop Dose Admin Hydromorphone HCl 1 mg 05/04/24 03:12 Hydromorphone 1 Mg/1ml Inj IM 05/04/24 03:13 STAT ONE - Progress Progress: improved Counseled pt/family regarding: diagnosis, need for follow-up Medical Desision Making - Risk of complications The pt has a mod risk of morbidity or mortality based on: Need for prescription drug management - Departure Clinical Impression: Acute exacerbation of chronic low back pain Condition: Stable Critical Care Time: No Referrals: MEGGAN MARIE MD [Primary Care Provider] - Follow up with PCP 1 day Instructions: Low Back Pain (DC), Sciatica (DC) Additional Instructions: Continue with your current home medications. Follow-up with primary care for reevaluation. Return to ER for any worsening pain, numbness weakness of lower extremities, loss of bowel or bladder control or saddle anesthesia etc..
[2024-05-04] MEDS ORDERED: Hydromorphone 1 mg/ml Injection ONE ×2 (03:25→04:18)
[2024-05-04] MEDS: Hydromorphone 1 mg/ml Injection IM ONE ×2 (03:29→04:19)
[2024-05-04 04:34] VITALS: BP 140/63; PULSE 61; O2SAT 94
== END 2024-05-04 04:43 | disposition home or self-care (01) ==
LOC: ED 02:51
DX: G89.29 Other chronic pain (principal); M54.50 Low back pain, unspecified; E11.9 Type 2 diabetes mellitus without complications; I10 Essential (primary) hypertension; Z79.84 Long term (current) use of oral hypoglycemic drugs; Z79.899 Other long term (current) drug therapy
CPT/HCPCS: 96372; 99283; J1170

== ENCOUNTER 2024-06-28 22:35 | Emergency (ER) | payer SELFPAY ==
[2024-06-28 22:56] VITALS: TEMP 97.5
[2024-06-28] MEDS ORDERED: Hydromorphone 1 mg/ml Injection ONE (23:36)
[2024-06-28] MEDS: Hydromorphone 1 mg/ml Injection IM ONE (23:37)
[2024-06-28] MEDS ORDERED: ZOFRAN ODT 4 MG ONE (23:43)
[2024-06-28] MEDS: ZOFRAN ODT 4 MG PO ONE (23:43)
[2024-06-28 23:45] VITALS: O2SAT 96
--- NOTE | 2024-06-29 00:16 | ERPHSYRPT ---
- History of Present Illness Time Seen by Provider: 06/28/24 22:48 Source: patient Exam Limitations: no limitations Patient Subjective Stated Complaint: acute on chronic back pain that started this afternoon, denies any injury, pt states the only thing that helps when it i s this bad is 2 mg dilaudid Triage Nursing Assessment: pt ambultory to bed by self with mother bedside, pt alert and oriented x3, skin pwd, pt c/o acute on chronic back pain that started this afternoon, pt denies any injury, afebrile. Physician History: 59 years old morbidly obese male with history of chronic back pain/sciatica, diabetes mellitus presented in the ER with acute worsening of right lower back pain with some radiation to right lower leg/buttock area since this afternoon. Patient reports he moved around and all of a sudden pain started. Patient is still able to walk and ambulated himself in the ER. Denies any numbness tingling or weakness of lower extremities, no saddle anesthesia, no loss of bowel or bladder control. Reports having similar symptoms multiple times in the past which go away with a shot of pain medication. Patient currently is in the process of switching pain medication physician. Denies any midline back pain. Allergies/Adverse Reactions: butorphanol [From Stadol] Allergy (Mild, Verified 06/28/24 22:47) Hives ketorolac [From Toradol] Allergy (Mild, Verified 06/28/24 22:47) Hives morphine Allergy (Mild, Verified 06/28/24 22:47) Hives nalbuphine [From Nubain] Allergy (Mild, Verified 06/28/24 22:47) Hives orphenadrine [From Norflex] Allergy (Mild, Verified 06/28/24 22:47) Hives diazepam [From Valium] Allergy (Verified 06/28/24 22:47) fentanyl Allergy (Verified 06/28/24 22:47) Home Medications: Atorvastatin Calcium [Lipitor 40Mg] 80 mg PO HS 09/15/16 [History] Citalopram Hydrobromide 20 mg* [ceLEXa 20 MG] 20 mg PO DAILY 09/15/16 [History] Lisinopril 20 mg [Zestril 20 MG] 20 mg PO DAILY 09/15/16 [History] Metformin HCl 1000 mg [Glucophage 1000 MG] 1,000 mg PO BID 09/15/16 [History] Allopurinol 300 mg [Zyloprim 300 mg] 300 mg PO DAILY 12/24/18 [History] Buspirone HCl 5 mg PO DAILY 12/24/18 [History] Dicyclomine HCl 10 mg PO QID 09/17/22 [History] Empagliflozin [Jardiance] 10 mg PO DAILY 09/17/22 [History] PANTOPRAZOLE 40 mg Tablet [Protonix 40MG Tablet] 40 mg PO QAM 09/17/22 [History] Glipizide 10 mg [Glucotrol 10 MG] 10 mg PO DAILY 06/30/23 [History] methocarbamoL [Methocarbamol] 750 mg PO BID 05/04/24 [History] Hx Tetanus, Diphtheria Vaccination/Date Given: Yes Hx Influenza Vaccination/Date Given: Yes Hx Pneumococcal Vaccination/Date Given: No Travel Risk - International Travel Have you traveled outside of the country in past 3 weeks: No - Emerging Infectious Disease Are you exhibiting symptoms associated with any current EIDs: No - Review of Systems Constitutional: No Symptoms Ears, Nose, & Throat: No Symptoms Respiratory: No Symptoms Cardiac: No Symptoms Abdominal/Gastrointestinal: No Symptoms Genitourinary Symptoms: No Symptoms Musculoskeletal: Arthralgias, Back Pain Skin: No Symptoms Neurological: No Symptoms Endocrine: No Symptoms Immunological/Allergic: No Symptoms - Past Medical History Pertinent Past Medical History: Yes Neurological History: No Pertinent History ENT History: No Pertinent History Cardiac History: Hypertension Respiratory History: No Pertinent History Endocrine Medical History: Diabetes Type II Musculoskeletal History: Degenerative Disk Disease GI Medical History: GERD, Irritable Bowel History: No Pertinent History Psycho-Social History: Depression Male Reproductive Disorders: No Pertinent History Other Medical History: chronic back pain - Past Surgical History Past Surgical History: Yes Neuro Surgical History: No Pertinent History Cardiac: No Pertinent History Respiratory: No Pertinent History Gastrointestinal: Cholecystectomy Genitourinary: No Pertinent History Musculoskeletal: Orthopedic Surgery Male Surgical History: No Pertinent History Other Surgical History: Knees-orthoscopic. right ankle. left arm - Social History Smoking Status: Never smoker Exposure to second hand smoke: No Drug Use: none Patient Lives Alone: No - Social Determinants of Health Will the patient participate in the screening: Declined to provide - Nursing Vital Signs Nursing Vital Signs: Initial Vital Signs Temperature 97.5 F 06/28/24 22:50 Pulse Rate 89 06/28/24 22:50 Respiratory Rate 18 06/28/24 22:50 Blood Pressure 174/105 06/28/24 22:50 O2 Sat by Pulse Oximetry 99 06/28/24 22:50 Pain Scale Pain Intensity [Lower Medial 8 Back] Pain Intensity 8 - Physical Exam General Appearance: no apparent distress Eye Exam: PERRL/EOMI Neck Exam: normal inspection, full range of motion Respiratory Exam: normal breath sounds, lungs clear Cardiovascular Exam: regular rate/rhythm, normal heart sounds Gastrointestinal Exam: soft, normal bowel sounds, No tenderness Back Exam: normal inspection, decreased range of motion, muscle spasm, point tenderness (Right lower sacroiliac area), other (Straight leg raising test positive with 45 degree on the right side) Extremity Exam: normal inspection, normal range of motion Neurologic Exam: alert, oriented x 3, cooperative, sensation nml, No motor deficits Skin Exam: normal color SpO2 Interpretation: normal SpO2: 96 O2 Delivery: Room Air Ordered Tests: Medication Summary Discontinued Medications Generic Name Dose Route Start Last Admin Trade Name Freq PRN Reason Stop Dose Admin Hydromorphone HCl 2 mg 06/28/24 23:32 06/28/24 23:37 Hydromorphone 1 Mg/1ml Inj IM 06/28/24 23:33 2 mg STAT ONE Administration Hydromorphone HCl Confirm 06/28/24 23:36 Hydromorphone 1 Mg/1ml Inj Administered 06/28/24 23:37 Dose 2 mg .ROUTE .STK-MED ONE Ondansetron HCl 4 mg 06/28/24 23:42 06/28/24 23:43 Zofran 4 Mg/Udtablet Orally Disintegrating PO 06/28/24 23:43 4 mg STAT ONE Administration Ondansetron HCl Confirm 06/28/24 23:43 Zofran 4 Mg/Udtablet Orally Disintegrating Administered 06/28/24 23:44 Dose 4 mg .ROUTE .STK-MED ONE - Progress Progress: improved Progress Note: 06/29/24 00:22 59 years old male with history of chronic back pain, diabetes mellitus is evaluated in the ER for worsening right lower back pain. Patient has similar episodes multiple times in the past. Has no difficulty ambulation or weightbearing. Has negative neuroexam in lower extremities. No saddle anesthesia. He is given symptomatic treatment with IM shot of Dilaudid, reevaluation his pain is much more improved. Feeling better. I do not think patient needs imaging. I believe patient would benefit with pain management follow-up which he is in the process of getting an appointment. Discussed signs symptoms of worsening needing return to ER which he seems understanding. Stable for discharge. Counseled pt/family regarding: diagnosis, need for follow-up Medical Desision Making - Independent Historian Additional History obtained from: Mother - Risk of complications The pt has a mod risk of morbidity or mortality based on: Need for prescription drug management - Departure Departure Disposition: Home Clinical Impression: Acute exacerbation of chronic low back pain Condition: Stable Critical Care Time: No Referrals: MEGGAN MARIE MD [Primary Care Provider] - Follow up with PCP 1 day Instructions: Low Back Pain (DC), Sciatica (DC) Additional Instructions: Continue with your pain medications. Follow-up with primary care and pain management for reevaluation. Return to ER for intractable pain, numbness tingling weakness of lower extremities, loss of bowel or bladder control or saddle anesthesia.
[2024-06-29 00:17] VITALS: BP 133/65; PULSE 83; RESP 20
== END 2024-06-29 00:30 | disposition home or self-care (01) ==
LOC: ED 22:35
DX: G89.29 Other chronic pain (principal); M54.50 Low back pain, unspecified; E11.9 Type 2 diabetes mellitus without complications; I10 Essential (primary) hypertension; Z79.84 Long term (current) use of oral hypoglycemic drugs; Z79.899 Other long term (current) drug therapy
CPT/HCPCS: 96372; 99283; J1170; Q0162

== ENCOUNTER 2024-11-02 04:24 | Emergency (ER) | payer SELFPAY ==
[2024-11-02 04:42] VITALS: RESP 24; TEMP 98.6; O2SAT 97
[2024-11-02] MEDS ORDERED: Hydromorphone 1 mg/ml Injection ONE (05:34)
[2024-11-02] MEDS ORDERED: ZOFRAN ODT 4 MG ONE (05:34)
[2024-11-02] MEDS: Hydromorphone 1 mg/ml Injection IM ONE (05:35)
[2024-11-02] MEDS: ZOFRAN ODT 4 MG PO ONE (05:36)
--- NOTE | 2024-11-02 05:39 | ERPHSYRPT ---
- History of Present Illness Time Seen by Provider: 11/02/24 04:50 Source: patient, family Exam Limitations: no limitations Patient Subjective Stated Complaint: pt states he is having lower back pain Triage Nursing Assessment: pt ambulated into the er; pt is axo x4; c/o lower back; pt states 8/10 pain to lower back; pt denies fall or injuries; skin PDW; no respiratory distress present; vitals wnl Physician History: This is a morbidly obese 59-year-old white male patient who presents to the emergency department accompanied by his mother by private vehicle secondary to acute exacerbation of low back pain. This occurs somewhat frequently. Patient has significant arthritis in his back and hips and knees. He did not fall or suffer any acute trauma. However he was twisting bending and lifting last evening and the pain came on earlier this morning and worsened. He has no loss of bladder or bowel control. He does not have pain and numbness into his feet. Patient has no genitourinary tract infection symptoms. Patient states that this type of pain responds well to 2 mg of intramuscular Dilaudid. He can take this medication without any adverse effects. Timing/Duration: today Method of Injury: bending, lifting, twisted, turning Quality: aching Back Pain Location: lumbar spine Severity of Pain-Max: moderate Severity of Pain-Current: moderate Modifying Factors: Improves With: movement Associated Symptoms: lower back pain, muscle spasms, No urinary incontinence, No loss of bowel control, No vomiting, No problems urinating, No numbness in legs/feet, No sensory/motor loss Previous symptoms: same symptoms as today, no recent treatment Allergies/Adverse Reactions: butorphanol [From Stadol] Allergy (Mild, Verified 11/02/24 04:34) Hives ketorolac [From Toradol] Allergy (Mild, Verified 11/02/24 04:34) Hives morphine Allergy (Mild, Verified 11/02/24 04:34) Hives nalbuphine [From Nubain] Allergy (Mild, Verified 11/02/24 04:34) Hives orphenadrine [From Norflex] Allergy (Mild, Verified 11/02/24 04:34) Hives diazepam [From Valium] Allergy (Verified 11/02/24 04:34) fentanyl Allergy (Verified 11/02/24 04:34) Home Medications: Atorvastatin Calcium [Lipitor 40Mg] 80 mg PO HS 09/15/16 [History] Citalopram Hydrobromide 20 mg* [ceLEXa 20 MG] 20 mg PO DAILY 09/15/16 [History] Lisinopril 20 mg [Zestril 20 MG] 40 mg PO DAILY 09/15/16 [History] Metformin HCl 1000 mg [Glucophage 1000 MG] 1,000 mg PO BID 09/15/16 [History] Allopurinol 300 mg [Zyloprim 300 mg] 300 mg PO DAILY 12/24/18 [History] Buspirone HCl 5 mg PO DAILY 12/24/18 [History] Dicyclomine HCl 10 mg PO QID 09/17/22 [History] Empagliflozin [Jardiance] 25 mg PO DAILY 09/17/22 [History] PANTOPRAZOLE 40 mg Tablet [Protonix 40MG Tablet] 40 mg PO QAM 09/17/22 [History] Glipizide 10 mg [Glucotrol 10 MG] 10 mg PO DAILY 06/30/23 [History] methocarbamoL [Methocarbamol] 750 mg PO BID 05/04/24 [History] Hydrocodone/Acetaminophen [Hydrocodone-Acetamin 7.5-325] 1 each PO Q6HPRN PRN 11/02/24 [History] Hx Tetanus, Diphtheria Vaccination/Date Given: Yes Hx Influenza Vaccination/Date Given: Yes Hx Pneumococcal Vaccination/Date Given: No Immunizations Up to Date: No Travel Risk - International Travel Have you traveled outside of the country in past 3 weeks: No - Emerging Infectious Disease Are you exhibiting symptoms associated with any current EIDs: No - Review of Systems Constitutional: No Symptoms Eyes: No Symptoms Ears, Nose, & Throat: No Symptoms Respiratory: No Symptoms Cardiac: No Symptoms Abdominal/Gastrointestinal: No Symptoms Genitourinary Symptoms: No Symptoms Musculoskeletal: Back Pain Skin: No Symptoms Neurological: No Symptoms Psychological: No Symptoms Endocrine: No Symptoms Hematologic/Lymphatic: No Symptoms Immunological/Allergic: No Symptoms All Other Systems: Reviewed and Negative - Past Medical History Pertinent Past Medical History: Yes Neurological History: No Pertinent History ENT History: No Pertinent History Cardiac History: Hypertension Respiratory History: No Pertinent History Endocrine Medical History: Diabetes Type II Musculoskeletal History: Degenerative Disk Disease GI Medical History: GERD, Irritable Bowel History: No Pertinent History Psycho-Social History: Depression Male Reproductive Disorders: No Pertinent History Other Medical History: chronic back pain - Past Surgical History Past Surgical History: Yes Neuro Surgical History: No Pertinent History Cardiac: No Pertinent History Respiratory: No Pertinent History Gastrointestinal: Cholecystectomy Genitourinary: No Pertinent History Musculoskeletal: Orthopedic Surgery Male Surgical History: No Pertinent History Other Surgical History: Knees-orthoscopic. right ankle. left arm - Social History Smoking Status: Never smoker Exposure to second hand smoke: No Drug Use: none Patient Lives Alone: No - Social Determinants of Health Will the patient participate in the screening: Declined to provide - Nursing Vital Signs Nursing Vital Signs: Initial Vital Signs Temperature 98.6 F 11/02/24 04:34 Pulse Rate 86 11/02/24 04:34 Respiratory Rate 24 11/02/24 04:34 Blood Pressure 148/91 11/02/24 04:34 O2 Sat by Pulse Oximetry 97 11/02/24 04:34 Pain Scale Pain Intensity [Upper Back] 8 Pain Intensity 8 - Physical Exam General Appearance: mild distress, alert, anxiety, obese Eye Exam: PERRL/EOMI Ears, Nose, Throat Exam: normal ENT inspection, moist mucous membranes Neck Exam: normal inspection, non-tender, supple, full range of motion Respiratory Exam: airway intact, No chest tenderness, No respiratory distress Gastrointestinal Exam: No tenderness Rectal Exam: not done Back Exam: normal inspection, decreased range of motion, muscle spasm, No CVA tenderness, No vertebral tenderness Extremity Exam: normal inspection, normal range of motion, pelvis stable Neurologic Exam: alert, oriented x 3, cooperative, pastoral counselor II-XII nml as tested, nml cerebellar function, nml station & gait, sensation nml Skin Exam: normal color, warm, dry Lymphatic Exam: No adenopathy SpO2 Interpretation: normal SpO2: 97 O2 Delivery: Room Air - Course Nursing assessment & vital signs reviewed: Yes Ordered Tests: Medication Summary Discontinued Medications Generic Name Dose Route Start Last Admin Trade Name Freq PRN Reason Stop Dose Admin Hydromorphone HCl 2 mg 11/02/24 05:30 Hydromorphone 1 Mg/1ml Inj IM 11/02/24 05:31 STAT ONE Ondansetron HCl 4 mg 11/02/24 05:32 Zofran 4 Mg/Udtablet Orally Disintegrating PO 11/02/24 05:33 STAT ONE - Progress Progress: improved, pain not gone completely Progress Note: 11/02/24 05:41 My medical decision making and the assignment of low complexity to this patient's medical issue today is based on review of the patient's past medical history, review the patient's medication list, reviewed the patient drug allergy list, history present illness and physical findings on examination. The patient workup does not require any radiographic or laboratory studies. Patient is to receive 2 mg of intramuscular Dilaudid and 4 mg of ODT Zofran. Differential diagnosis includes but is not limited to acute exacerbation of chronic low back pain, lumbar spine strain, paraspinous muscle spasms Counseled pt/family regarding: diagnosis, need for follow-up Medical Desision Making - Independent Historian Additional History obtained from: Mother - Diagnostic Testing Diagnostic test were ordered, analyzed, and reviewed by me: No - Risk of complications Low Risk: Low risk of morbidity from additional dx testing or treatment - Departure Departure Disposition: Home Clinical Impression: Acute exacerbation of chronic low back pain Condition: Stable Critical Care Time: No Referrals: Provider,Unknown [Primary Care Provider] - Follow up/PCP as directed Additional Instructions: Continue all your medications as prescribed. Call your primary care provider today, 11/02/2024, to make arrangements to follow-up in that office in the next 3 to 5 days for further evaluation management.
[2024-11-02 06:16] VITALS: BP 135/92; PULSE 73
== END 2024-11-02 05:56 | disposition home or self-care (01) ==
LOC: ED 04:24
DX: M54.50 Low back pain, unspecified (principal); M62.830 Muscle spasm of back
CPT/HCPCS: 96372; 99282; J1171; Q0162

== ENCOUNTER 2024-11-25 13:34 | Emergency (ER) | payer SELFPAY ==
[2024-11-25 13:49] VITALS: RESP 16
[2024-11-25 14:01] VITALS: BP 157/107; PULSE 80
[2024-11-25] MEDS ORDERED: Hydromorphone 1 mg/ml Injection ONE (14:07)
[2024-11-25] MEDS: Hydromorphone 1 mg/ml Injection IM ONE (14:09)
--- NOTE | 2024-11-25 14:15 | ERPHSYRPT ---
- History of Present Illness Time Seen by Provider: 11/25/24 13:55 Source: patient, family (mom) Exam Limitations: no limitations Patient Subjective Stated Complaint: . Triage Nursing Assessment: . Physician History: Pt states he has chronic low back pain exacerbated by walking on slippery surfaces in the past 2 days; denies falling. Pt states he has allergy to morphine, toradol, stadol, nubain, fentanyl, valium and norflex but he states he can take dilaudid without allergy and it helps. Pt denies chest pain, shortness of air, fever, abdominal pain, vomiting. Allergies/Adverse Reactions: butorphanol [From Stadol] Allergy (Mild, Verified 11/25/24 13:50) Hives ketorolac [From Toradol] Allergy (Mild, Verified 11/25/24 13:50) Hives morphine Allergy (Mild, Verified 11/25/24 13:50) Hives nalbuphine [From Nubain] Allergy (Mild, Verified 11/25/24 13:50) Hives orphenadrine [From Norflex] Allergy (Mild, Verified 11/25/24 13:50) Hives diazepam [From Valium] Allergy (Verified 11/25/24 13:50) fentanyl Allergy (Verified 11/25/24 13:50) Home Medications: Atorvastatin Calcium [Lipitor 40Mg] 80 mg PO HS 09/15/16 [History] Citalopram Hydrobromide 20 mg* [ceLEXa 20 MG] 20 mg PO DAILY 09/15/16 [History] Lisinopril 20 mg [Zestril 20 MG] 40 mg PO DAILY 09/15/16 [History] Metformin HCl 1000 mg [Glucophage 1000 MG] 1,000 mg PO BID 09/15/16 [History] Allopurinol 300 mg [Zyloprim 300 mg] 300 mg PO DAILY 12/24/18 [History] Buspirone HCl 5 mg PO DAILY 12/24/18 [History] Dicyclomine HCl 10 mg PO QID 09/17/22 [History] Empagliflozin [Jardiance] 25 mg PO DAILY 09/17/22 [History] PANTOPRAZOLE 40 mg Tablet [Protonix 40MG Tablet] 40 mg PO QAM 09/17/22 [History] Glipizide 10 mg [Glucotrol 10 MG] 10 mg PO DAILY 06/30/23 [History] methocarbamoL [Methocarbamol] 750 mg PO BID 05/04/24 [History] Hydrocodone/Acetaminophen [Hydrocodone-Acetamin 7.5-325] 1 each PO Q6HPRN PRN 11/02/24 [History] Hx Tetanus, Diphtheria Vaccination/Date Given: Yes Hx Influenza Vaccination/Date Given: Yes Hx Pneumococcal Vaccination/Date Given: No Travel Risk - International Travel Have you traveled outside of the country in past 3 weeks: No - Emerging Infectious Disease Are you exhibiting symptoms associated with any current EIDs: No - Review of Systems Constitutional: No Fever Respiratory: No Dyspnea Cardiac: No Chest Pain Abdominal/Gastrointestinal: No Abdominal Pain, No Vomiting Musculoskeletal: Back Pain (chronic) Neurological: No Headache - Past Medical History Pertinent Past Medical History: Yes Neurological History: No Pertinent History ENT History: No Pertinent History Cardiac History: Hypertension Respiratory History: No Pertinent History Endocrine Medical History: Diabetes Type II Musculoskeletal History: Degenerative Disk Disease GI Medical History: GERD, Irritable Bowel History: No Pertinent History Psycho-Social History: Depression Male Reproductive Disorders: No Pertinent History Other Medical History: chronic back pain - Past Surgical History Past Surgical History: Yes Neuro Surgical History: No Pertinent History Cardiac: No Pertinent History Respiratory: No Pertinent History Gastrointestinal: Cholecystectomy Genitourinary: No Pertinent History Musculoskeletal: Orthopedic Surgery Male Surgical History: No Pertinent History Other Surgical History: Knees-orthoscopic. right ankle. left arm - Social History Smoking Status: Never smoker Exposure to second hand smoke: No Drug Use: none Patient Lives Alone: No - Social Determinants of Health Will the patient participate in the screening: Declined to provide - Nursing Vital Signs Nursing Vital Signs: Initial Vital Signs Pulse Rate 72 11/25/24 13:44 Respiratory Rate 16 11/25/24 13:44 Blood Pressure 181/116 11/25/24 13:44 O2 Sat by Pulse Oximetry 98 11/25/24 13:44 Pain Scale Pain Intensity 8 - Physical Exam General Appearance: alert Eye Exam: eyes nml inspection Ears, Nose, Throat Exam: pharynx normal Neck Exam: normal inspection Respiratory Exam: lungs clear, airway intact Cardiovascular Exam: normal heart sounds Gastrointestinal Exam: normal bowel sounds Extremity Exam: normal range of motion Neurologic Exam: alert, cooperative Skin Exam: warm, dry SpO2 Interpretation: normal SpO2: 98 O2 Delivery: Room Air - Progress Progress: unchanged Counseled pt/family regarding: need for follow-up - Departure Departure Disposition: Home Clinical Impression: Chronic low back pain Condition: Stable Critical Care Time: No Referrals: ROSANNA BREAUX MD [Primary Care Provider] - Follow up/PCP as directed Instructions: Low Back Pain (DC) Additional Instructions: Follow up with private doctor tomorrow.
[2024-11-25] MEDS ORDERED: ZOFRAN ODT 4 MG ONE (14:19)
[2024-11-25 14:20] VITALS: O2SAT 98
[2024-11-25] MEDS: ZOFRAN ODT 4 MG PO ONE (14:20)
== END 2024-11-25 14:29 | disposition home or self-care (01) ==
LOC: ED 13:34
DX: G89.29 Other chronic pain (principal); M54.50 Low back pain, unspecified; I10 Essential (primary) hypertension; E11.9 Type 2 diabetes mellitus without complications; Z79.891 Long term (current) use of opiate analgesic; Z79.84 Long term (current) use of oral hypoglycemic drugs; Z79.899 Other long term (current) drug therapy
CPT/HCPCS: 96372; 99282; 99283; J1171; Q0162

== ENCOUNTER 2024-12-17 16:43 | Emergency (ER) | payer SELFPAY ==
[2024-12-17 20:41] VITALS: TEMP 97.9
--- NOTE | 2024-12-17 21:03 | ERPHSYRPT ---
- History of Present Illness Time Seen by Provider: 12/17/24 21:02 Source: patient, family Exam Limitations: no limitations Patient Subjective Stated Complaint: low back pain, it's chronic Triage Nursing Assessment: Pt ambulated into ER without diff, mother at bedside. Pt c/o low back pain in the spine area which is a chronic issue for this pt. Pt had a pain management dr but hasn't had one for 2.5 years. Pt is talking non stop and moving in bed without difficulty. Physician History: This is a morbidly obese 59-year-old white male patient who presents to the emergency department with acute exacerbation of chronic low back pain. He has been seen once a month for the last 3 months and nearly every single visit is for low back pain without trauma or injury. He lives out of town and comes to our emergency department for pain management of a chronic condition Timing/Duration: other (Chronic) Method of Injury: other (No injury) Quality: sharp Back Pain Location: paraspinous muscles Severity of Pain-Max: moderate Severity of Pain-Current: moderate Associated Symptoms: lower back pain, No urinary incontinence, No loss of bowel control, No constipation, No problems urinating, No numbness in legs/feet, No sensory/motor loss, No tingling in legs/feet Previous symptoms: same symptoms as today, recently seen Allergies/Adverse Reactions: butorphanol [From Stadol] Allergy (Mild, Verified 12/17/24 20:48) Hives ketorolac [From Toradol] Allergy (Mild, Verified 12/17/24 20:48) Hives morphine Allergy (Mild, Verified 12/17/24 20:48) Hives nalbuphine [From Nubain] Allergy (Mild, Verified 12/17/24 20:48) Hives orphenadrine [From Norflex] Allergy (Mild, Verified 12/17/24 20:48) Hives diazepam [From Valium] Allergy (Verified 12/17/24 20:48) fentanyl Allergy (Verified 12/17/24 20:48) Home Medications: Atorvastatin Calcium [Lipitor 40Mg] 80 mg PO HS 09/15/16 [History] Citalopram Hydrobromide 20 mg* [ceLEXa 20 MG] 20 mg PO DAILY 09/15/16 [Hi story] Lisinopril 20 mg [Zestril 20 MG] 40 mg PO DAILY 09/15/16 [History] Metformin HCl 1000 mg [Glucophage 1000 MG] 1,000 mg PO BID 09/15/16 [History] Allopurinol 300 mg [Zyloprim 300 mg] 300 mg PO HS 12/24/18 [History] Buspirone HCl 5 mg PO DAILY 12/24/18 [History] Empagliflozin [Jardiance] 25 mg PO DAILY 09/17/22 [History] PANTOPRAZOLE 40 mg Tablet [Protonix 40MG Tablet] 40 mg PO QAM 09/17/22 [History] methocarbamoL [Methocarbamol] 750 mg PO BID 05/04/24 [History] Hydrocodone/Acetaminophen [Hydrocodone-Acetamin 7.5-325] 1 each PO Q6HPRN PRN 11/02/24 [History] Hx Tetanus, Diphtheria Vaccination/Date Given: Yes Hx Influenza Vaccination/Date Given: Yes Hx Pneumococcal Vaccination/Date Given: No Travel Risk - International Travel Have you traveled outside of the country in past 3 weeks: No - Emerging Infectious Disease Are you exhibiting symptoms associated with any current EIDs: No - Review of Systems Constitutional: No Symptoms Eyes: No Symptoms Ears, Nose, & Throat: No Symptoms Respiratory: No Symptoms Cardiac: No Symptoms Abdominal/Gastrointestinal: No Symptoms Genitourinary Symptoms: No Symptoms Musculoskeletal: Back Pain, No Fall (Phonic), No Injury Skin: No Symptoms Neurological: No Symptoms Psychological: No Symptoms Endocrine: No Symptoms Hematologic/Lymphatic: No Symptoms Immunological/Allergic: No Symptoms All Other Systems: Reviewed and Negative - Past Medical History Pertinent Past Medical History: Yes Neurological History: No Pertinent History ENT History: No Pertinent History Cardiac History: Hypertension Respiratory History: No Pertinent History Endocrine Medical History: Diabetes Type II Musculoskeletal History: Degenerative Disk Disease GI Medical History: GERD, Gallbladder Disease, Irritable Bowel History: No Pertinent History Psycho-Social History: Depression Male Reproductive Disorders: No Pertinent History Other Medical History: chronic back pain - Past Surgical History Past Surgical History: Yes Neuro Surgical History: No Pertinent History Cardiac: No Pertinent History Respiratory: No Pertinent History Gastrointestinal: Cholecystectomy Genitourinary: No Pertinent History Musculoskeletal: Orthopedic Surgery Male Surgical History: No Pertinent History Other Surgical History: Knees-orthoscopic. right ankle. left arm - Social History Smoking Status: Never smoker Exposure to second hand smoke: No Drug Use: none Patient Lives Alone: No - Social Determinants of Health Will the patient participate in the screening: Yes Do you worry about a steady place to live?: No Do you have any problems with any of the following?: No known problems In the past 12 months,have you had to go without utilities?: No Transportation Issues: No Has anyone in your support network made you feel unsafe?: No Have you or anyone in your house had to go without enough: No - Nursing Vital Signs Nursing Vital Signs: Initial Vital Signs Temperature 97.9 F 12/17/24 20:39 Pulse Rate 83 12/17/24 20:39 Respiratory Rate 22 12/17/24 20:39 Blood Pressure 156/103 12/17/24 20:39 O2 Sat by Pulse Oximetry 97 12/17/24 20:39 Pain Scale Pain Intensity [Back] 8 Pain Intensity 8 - Physical Exam General Appearance: no apparent distress, alert, anxiety, obese Eye Exam: PERRL/EOMI, eyes nml inspection Ears, Nose, Throat Exam: normal ENT inspection, moist mucous membranes Neck Exam: normal inspection, non-tender, supple, full range of motion Respiratory Exam: airway intact, No chest tenderness, No respiratory distress Gastrointestinal Exam: No tenderness Back Exam: normal inspection, normal range of motion, muscle spasm, No CVA tenderness, No vertebral tenderness Extremity Exam: normal inspection, normal range of motion, pelvis stable Neurologic Exam: alert, oriented x 3, cooperative, technology and engineering teacher II-XII nml as tested, nml cerebellar function, nml station & gait, sensation nml Skin Exam: normal color, warm, dry Lymphatic Exam: No adenopathy SpO2 Interpretation: normal SpO2: 97 O2 Delivery: Room Air - Course Nursing assessment & vital signs reviewed: Yes Ordered Tests: Medication Summary Discontinued Medications Generic Name Dose Route Start Last Admin Trade Name Freq PRN Reason Stop Dose Admin Hydromorphone HCl 2 mg 12/17/24 21:09 Hydromorphone 1 Mg/1ml Inj IM 12/17/24 21:10 STAT ONE Ondansetron HCl 4 mg 12/17/24 21:09 Zofran 4 Mg/Udtablet Orally Disintegrating PO 12/17/24 21:10 STAT ONE - Progress Progress: improved, pain not gone completely, re-examined Progress Note: 12/17/24 21:17 My medical decision making and the assignment of low complexity to this patient's medical issue today is based on review of the patient's past medical history, review of patient's medication list, reviewed patient drug allergy list, history present illness and physical findings on examination. The patient does not require any workup (lab or radiographic studies). Patient and his mother were told that he will no longer receive narcotic pain medicine after today for this chronic condition. He needs to find a pain specialist to control/manage his chronic back pain issues. He was told that he could come back anytime for evaluation of his back pain issues or any other medical issues but he will not receive narcotics for his chronic back pain. Counseled pt/family regarding: diagnosis, need for follow-up Medical Desision Making - Independent Historian Additional History obtained from: Mother - Diagnostic Testing Diagnostic test were ordered, analyzed, and reviewed by me: No - Risk of complications Minimal Risk: Minimal risk of morbidity - Departure Departure Disposition: Home Clinical Impression: Chronic back pain Condition: Stable Critical Care Time: No Referrals: ROSANNA BREAUX MD [Primary Care Provider] - Follow up/PCP as directed Additional Instructions: Follow-up with your primary care provider, pain specialist, back specialist or neurologist to manage your back pain issues.
[2024-12-17] MEDS ORDERED: ZOFRAN ODT 4 MG ONE (21:15)
[2024-12-17] MEDS ORDERED: Hydromorphone 1 mg/ml Injection ONE (21:15)
[2024-12-17] MEDS: ZOFRAN ODT 4 MG PO ONE (21:16)
[2024-12-17] MEDS: Hydromorphone 1 mg/ml Injection IM ONE (21:17)
[2024-12-17 21:26] VITALS: RESP 20; O2SAT 96
[2024-12-17 21:33] VITALS: BP 146/93; PULSE 86
== END 2024-12-17 21:40 | disposition home or self-care (01) ==
LOC: ED 16:43
DX: G89.29 Other chronic pain (principal); M54.50 Low back pain, unspecified; I10 Essential (primary) hypertension; E11.9 Type 2 diabetes mellitus without complications; Z79.84 Long term (current) use of oral hypoglycemic drugs; Z79.899 Other long term (current) drug therapy
CPT/HCPCS: 96372; 99283; J1171; Q0162

== ENCOUNTER 2025-08-08 19:44 | Emergency (ER) | payer SELFPAY ==
--- NOTE | 2025-08-08 19:55 | ERPHSYRPT ---
- History of Present Illness Time Seen by Provider: 08/08/25 19:55 Source: patient Physician History: This is a morbidly obese 60-year-old white male patient who arrives per private vehicle accompanied by his mother has a history of chronic low back pain. This afternoon, he had sudden increase in his low back pain without injury. He provides a level of 8 out of 10 pain. He is allergic to morphine butorphanol nalbuphine orphenadrine medication. He can take Dilaudid as long as he takes Zofran. Patient has a history of diabetes, hypertension, anxiety, gout, hyperlipidemia and gastroesophageal reflux disease Timing/Duration: today Quality: aching Back Pain Location: lumbar spine Severity of Pain-Max: moderate Modifying Factors: Improves With: movement Associated Symptoms: lower back pain, No urinary incontinence, No loss of bowel control, No numbness in legs/feet, No sensory/motor loss, No muscle spasms Previous symptoms: same symptoms as today, no recent treatment Allergies/Adverse Reactions: butorphanol [From Stadol] Allergy (Mild, Verified 08/08/25 19:51) Hives ketorolac [From Toradol] Allergy (Mild, Verified 08/08/25 19:51) Hives morphine Allergy (Mild, Verified 08/08/25 19:51) Hives nalbuphine [From Nubain] Allergy (Mild, Verified 08/08/25 19:51) Hives orphenadrine [From Norflex] Allergy (Mild, Verified 08/08/25 19:51) Hives diazepam [From Valium] Allergy (Verified 08/08/25 19:51) fentanyl Allergy (Verified 08/08/25 19:51) Home Medications: Atorvastatin Calcium [Lipitor 40Mg] 80 mg PO HS 09/15/16 [History] Citalopram Hydrobromide 20 mg* [ceLEXa 20 MG] 20 mg PO DAILY 09/15/16 [History] Lisinopril 20 mg [Zestril 20 MG] 40 mg PO DAILY 09/15/16 [History] Metformin HCl 1000 mg [Glucophage 1000 MG] 1,000 mg PO BID 09/15/16 [History] Allopurinol 300 mg [Zyloprim 300 mg] 300 mg PO HS 12/24/18 [History] Buspirone HCl 5 mg PO DAILY 12/24/18 [History] Empagliflozin [Jardiance] 25 mg PO DAILY 09/17/22 [History] PANTOPRAZOLE 40 mg Tablet [Protonix 40MG Tablet] 40 mg PO QAM 09/17/22 [History] methocarbamoL [Methocarbamol] 750 mg PO BID 05/04/24 [History] Glipizide 10 mg [Glucotrol 10 MG] 10 mg PO DAILY 08/08/25 [History] Hx Tetanus, Diphtheria Vaccination/Date Given: Yes Hx Influenza Vaccination/Date Given: Yes Hx Pneumococcal Vaccination/Date Given: No Travel Risk - International Travel Have you traveled outside of the country in past 3 weeks: No - Emerging Infectious Disease Are you exhibiting symptoms associated with any current EIDs: No - Review of Systems Constitutional: No Symptoms Eyes: No Symptoms Ears, Nose, & Throat: No Symptoms Respiratory: No Symptoms Cardiac: No Symptoms Abdominal/Gastrointestinal: No Symptoms Genitourinary Symptoms: No Symptoms Musculoskeletal: Back Pain, No Fall, No Injury Skin: No Symptoms Neurological: No Symptoms Psychological: No Symptoms Endocrine: No Symptoms Hematologic/Lymphatic: No Symptoms Immunological/Allergic: No Symptoms All Other Systems: Reviewed and Negative - Past Medical History Pertinent Past Medical History: Yes Neurological History: No Pertinent History ENT History: No Pertinent History Cardiac History: Hypertension Respiratory History: No Pertinent History Endocrine Medical History: Diabetes Type II Musculoskeletal History: Degenerative Disk Disease GI Medical History: GERD, Gallbladder Disease, Irritable Bowel History: No Pertinent History Psycho-Social History: Depression Male Reproductive Disorders: No Pertinent History Other Medical History: chronic back pain - Past Surgical History Past Surgical History: Yes Neuro Surgical History: No Pertinent History Cardiac: No Pertinent History Respiratory: No Pertinent History Gastrointestinal: Cholecystectomy Genitourinary: No Pertinent History Musculoskeletal: Orthopedic Surgery Male Surgical History: No Pertinent History Other Surgical History: Knees-orthoscopic. right ankle. left arm - Social History Smoking Status: Never smoker Exposure to second hand smoke: No Drug Use: none Patient Lives Alone: No - Social Determinants of Health Will the patient participate in the screening: Yes Do you worry about a steady place to live?: No In the past 12 months,have you had to go without utilities?: No Transportation Issues: No Has anyone in your support network made you feel unsafe?: No Have you or anyone in your house had to go w/o enough food: No - Nursing Vital Signs Nursing Vital Signs: Initial Vital Signs Temperature 96.9 F 08/08/25 19:56 Pulse Rate 80 08/08/25 19:56 Respiratory Rate 24 08/08/25 19:56 Blood Pressure 156/77 08/08/25 19:56 O2 Sat by Pulse Oximetry 97 08/08/25 19:56 Pain Scale Pain Intensity [Lower Back] 8 Pain Intensity 8 - Physical Exam General Appearance: no apparent distress, alert, anxiety, obese Eye Exam: PERRL/EOMI, eyes nml inspection Ears, Nose, Throat Exam: normal ENT inspection, moist mucous membranes Neck Exam: normal inspection, non-tender, supple, full range of motion Respiratory Exam: airway intact, No chest tenderness, No respiratory distress Gastrointestinal Exam: No tenderness Rectal Exam: not done Back Exam: normal inspection, normal range of motion, muscle spasm (Lumbar level), No CVA tenderness, No vertebral tenderness Extremity Exam: normal inspection, normal range of motion, pelvis stable Neurologic Exam: alert, oriented x 3, cooperative, international logistics analyst II-XII nml as tested, nml cerebellar function, nml station & gait, sensation nml Skin Exam: normal color, warm, dry Lymphatic Exam: No adenopathy SpO2 Interpretation: normal O2 Delivery: Room Air - Course Nursing assessment & vital signs reviewed: Yes - Progress Progress Note: 08/08/25 20:19 My medical decision making and the assignment of low complexity of this patient's medical issue today based on review of the patient's past medical history, review of the patient's medication list, review the patient's drug allergy list, history present illness and physical findings on examination. The workup in this patient does not necessitate radiographic or laboratory studies. Differential diagnosis includes but is not limited to acute exacerbation of chronic low back pain, muscle spasms, low back strain Counseled pt/family regarding: diagnosis, need for follow-up Medical Desision Making - Independent Historian Additional History obtained from: Mother - Diagnostic Testing Diagnostic test were ordered, analyzed, and reviewed by me: No - Risk of complications Low Risk: Low risk of morbidity from additional dx testing or treatment - Departure Departure Disposition: Home Clinical Impression: Acute exacerbation of chronic low back pain Condition: Stable Critical Care Time: No Referrals: ROSANNA BREAUX MD [Primary Care Provider, UNKNOWN] - Follow up/PCP as directed Additional Instructions: Drink plenty of fluids before advancing your diet. Take your prescription medication as prescribed. Call your primary care provider tomorrow, 08/09/2025, to make arrangements for follow-up appointment for further evaluation and management.
[2025-08-08 20:02] VITALS: RESP 24; TEMP 96.9
[2025-08-08] MEDS ORDERED: ZOFRAN ODT 4 MG ONE (20:18)
[2025-08-08] MEDS ORDERED: Hydromorphone 1 mg/ml Injection ONE (20:18)
[2025-08-08] MEDS: Hydromorphone 1 mg/ml Injection IM ONE (20:19)
[2025-08-08] MEDS: ZOFRAN ODT 4 MG PO ONE (20:20)
[2025-08-08 20:31] VITALS: BP 159/78; PULSE 85; O2SAT 98
== END 2025-08-08 20:52 | disposition home or self-care (01) ==
LOC: ED 19:44
DX: G89.29 Other chronic pain (principal); M54.50 Low back pain, unspecified; E11.9 Type 2 diabetes mellitus without complications; I10 Essential (primary) hypertension; Z79.84 Long term (current) use of oral hypoglycemic drugs; Z79.899 Other long term (current) drug therapy

== ENCOUNTER 2025-08-16 19:22 | Emergency (ER) | payer SELFPAY ==
--- NOTE | 2025-08-16 19:41 | ERPHSYRPT ---
- History of Present Illness Time Seen by Provider: 08/16/25 19:41 Source: patient, family Exam Limitations: no limitations Physician History: This is a morbidly obese 60-year-old white male patient arrives by private vehicle and obtained his medical care in a different city and this patient travels to our facility to get injections of specifically requested Dilaudid and Zofran. Patient has been seen in our emergency room at various times since 2016 and every single visit recorded is for low back pain. I have seen him multiple times for this issue. He states today that he finally has a plan from pain management physician, which he states he has not seen but there is, apparently, a plan for him to have a spinal ablation in the near future. I saw this patient 6 days ago for the same issue. He has not fallen and he has no new or acute trauma. He has no feet numbness. He has no urinary incontinence. He has no bowel incontinence. He has no constipation. He has no difficulty urinating. He is accompanied by his mother as usual for him during these visits. Patient has a history of gastroesophageal reflux disease, chronic low back pain, hypertension, anxiety and gout. Timing/Duration: today Method of Injury: other (No injury) Quality: sharp Back Pain Location: lumbar spine Back Pain Radiation: buttocks, upper legs Severity of Pain-Max: moderate Severity of Pain-Current: moderate Modifying Factors: Improves With: movement Associated Symptoms: lower back pain, No urinary incontinence, No loss of bowel control, No problems urinating, No numbness in legs/feet, No sensory/motor loss, No tingling in legs/feet Previous symptoms: same symptoms as today, recently seen, recently treated Allergies/Adverse Reactions: butorphanol [From Stadol] Allergy (Mild, Verified 08/16/25 19:43) Hives ketorolac [From Toradol] Allergy (Mild, Verified 08/16/25 19:43) Hives morphine Allergy (Mild, Verified 08/16/25 19:43) Hives nalbuphine [From Nubain] Allergy (Mild, Verified 08/16/25 19:43) Hives orphenadrine [From Norflex] Allergy (Mild, Verified 08/16/25 19:43) Hives diazepam [From Valium] Allergy (Verified 08/16/25 19:43) fentanyl Allergy (Verified 08/16/25 19:43) Home Medications: Atorvastatin Calcium [Lipitor 40Mg] 80 mg PO HS 09/15/16 [History] Citalopram Hydrobromide 20 mg* [ceLEXa 20 MG] 20 mg PO DAILY 09/15/16 [History] Lisinopril 20 mg [Zestril 20 MG] 40 mg PO DAILY 09/15/16 [History] Metformin HCl 1000 mg [Glucophage 1000 MG] 1,000 mg PO BID 09/15/16 [History] Allopurinol 300 mg [Zyloprim 300 mg] 300 mg PO HS 12/24/18 [History] Buspirone HCl 5 mg PO DAILY 12/24/18 [History] Empagliflozin [Jardiance] 25 mg PO DAILY 09/17/22 [History] PANTOPRAZOLE 40 mg Tablet [Protonix 40MG Tablet] 40 mg PO QAM 09/17/22 [History] methocarbamoL [Methocarbamol] 750 mg PO BID 05/04/24 [History] Glipizide 10 mg [Glucotrol 10 MG] 10 mg PO DAILY 08/08/25 [History] Hx Tetanus, Diphtheria Vaccination/Date Given: Yes Hx Influenza Vaccination/Date Given: Yes Hx Pneumococcal Vaccination/Date Given: No Travel Risk - International Travel Have you traveled outside of the country in past 3 weeks: No - Emerging Infectious Disease Are you exhibiting symptoms associated with any current EIDs: No - Review of Systems Constitutional: No Symptoms Eyes: No Symptoms Ears, Nose, & Throat: No Symptoms Respiratory: No Symptoms Cardiac: No Symptoms Abdominal/Gastrointestinal: No Symptoms Genitourinary Symptoms: No Symptoms Musculoskeletal: Back Pain, No Injury Skin: No Symptoms Neurological: No Symptoms Psychological: No Symptoms Endocrine: No Symptoms Hematologic/Lymphatic: No Symptoms Immunological/Allergic: No Symptoms All Other Systems: Reviewed and Negative - Past Medical History Pertinent Past Medical History: Yes Neurological History: No Pertinent History ENT History: No Pertinent History Cardiac History: Hypertension Respiratory History: No Pertinent History Endocrine Medical History: Diabetes Type II Musculoskeletal History: Degenerative Disk Disease GI Medical History: GERD, Gallbladder Disease, Irritable Bowel History: No Pertinent History Psycho-Social History: Depression Male Reproductive Disorders: No Pertinent History Other Medical History: chronic back pain - Past Surgical History Past Surgical History: Yes Neuro Surgical History: No Pertinent History Cardiac: No Pertinent History Respiratory: No Pertinent History Gastrointestinal: Cholecystectomy Genitourinary: No Pertinent History Musculoskeletal: Orthopedic Surgery Male Surgical History: No Pertinent History Other Surgical History: Knees-orthoscopic. right ankle. left arm - Social History Smoking Status: Never smoker Exposure to second hand smoke: No Drug Use: none Patient Lives Alone: No - Social Determinants of Health Will the patient participate in the screening: Yes Do you worry about a steady place to live?: No In the past 12 months,have you had to go without utilities?: No Transportation Issues: No Has anyone in your support network made you feel unsafe?: No Have you or anyone in your house had to go w/o enough food: No - Nursing Vital Signs Nursing Vital Signs: Initial Vital Signs Temperature 97.9 F 08/16/25 19:44 Pulse Rate 80 08/16/25 19:44 Respiratory Rate 24 08/16/25 19:44 Blood Pressure 199/102 08/16/25 19:44 O2 Sat by Pulse Oximetry 95 08/16/25 19:44 Pain Scale Pain Intensity [Lower Back] 10 Pain Intensity 10 - Physical Exam General Appearance: no apparent distress, alert, anxiety, obese Eye Exam: PERRL/EOMI, eyes nml inspection Ears, Nose, Throat Exam: normal ENT inspection, moist mucous membranes Neck Exam: normal inspection, non-tender, supple, full range of motion Respiratory Exam: airway intact, No chest tenderness, No respiratory distress Gastrointestinal Exam: No tenderness Rectal Exam: not done Back Exam: normal inspection, normal range of motion, muscle spasm (Lumbar level bilaterally), No CVA tenderness, No vertebral tenderness Extremity Exam: normal inspection, normal range of motion, pelvis stable Neurologic Exam: alert, oriented x 3, cooperative, retail reset merchandiser II-XII nml as tested, nml cerebellar function, nml station & gait, sensation nml Skin Exam: normal color, warm, dry Lymphatic Exam: No adenopathy SpO2 Interpretation: normal O2 Delivery: Room Air - Course Nursing assessment & vital signs reviewed: Yes Ordered Tests: Medication Summary Discontinued Medications Generic Name Dose Route Start Last Admin Trade Name Freq PRN Reason Stop Dose Admin Hydromorphone HCl 2 mg 08/16/25 19:59 Hydromorphone 1 Mg/1ml Inj IM 08/16/25 20:00 STAT ONE Ondansetron HCl 4 mg 08/16/25 19:59 Zofran 4 Mg/Udtablet Orally Disintegrating PO 08/16/25 20:00 STAT ONE - Progress Progress: improved, pain not gone completely, re-examined Progress Note: 08/16/25 20:09 My medical decision making and the assignment of low complexity of this patient's medical issue today is based on review of the patient's past medical history, review the patient's medication list, reviewed patient drug allergy list, history of present illness and physical findings on examination. The wo rkup in this patient today does not necessitate radiographic or laboratory studies. I had a long talk with the patient's mother and the patient. It is peculiar that this patient drives out of town to our facility to receive injections of narcotic pain medicine. He specifically wants 2 mg of Dilaudid and 4 mg of oral Zofran. We agreed for future visits, he can come anytime any day however, if I am the emergency department attendant, I will not be providing him any narcotic medications for his back pain unless specified by his neurologist or pain specialist. We agree that he will obtain a letter from his pain specialist or neurologist stating the medication and treatments the patient is to receive in the emergency department setting for future visits. Differential diagnosis includes was not limited to acute exacerbation of chronic back pain, sciatica, muscle spasms of back Counseled pt/family regarding: diagnosis, need for follow-up Medical Desision Making - Independent Historian Additional History obtained from: Mother - Diagnostic Testing Diagnostic test were ordered, analyzed, and reviewed by me: No - Risk of complications Low Risk: Low risk of morbidity from additional dx testing or treatment - Departure Departure Disposition: Home Clinical Impression: Acute exacerbation of chronic low back pain Condition: Stable Critical Care Time: No Referrals: DOCTOR,NO FAMILY [Primary Care Provider, UNKNOWN] - Follow up/PCP as directed Additional Instructions: Take your medications that have been prescribed to you. Follow-up with your primary care provider, pain specialist and neurologist for outpatient management of your chronic low back pain issues. Obtain a letter from your pain specialist and/or neurologist for instructions on future emergency department room visits management and care of your back pain. We will keep one in your records.
[2025-08-16 19:49] VITALS: TEMP 97.9
[2025-08-16] MEDS ORDERED: ZOFRAN ODT 4 MG ONE (20:06)
[2025-08-16] MEDS ORDERED: Hydromorphone 1 mg/ml Injection ONE (20:07)
[2025-08-16] MEDS: ZOFRAN ODT 4 MG PO ONE (20:08)
[2025-08-16] MEDS: Hydromorphone 1 mg/ml Injection IM ONE (20:08)
[2025-08-16 20:23] VITALS: BP 177/104; PULSE 85; RESP 20; O2SAT 96
== END 2025-08-16 20:21 | disposition home or self-care (01) ==
LOC: ED 19:22
DX: M54.50 Low back pain, unspecified (principal)